=== PATIENT | female | born 1975 | race African-American/Black ===

== ENCOUNTER 2016-05-08 09:48 | Emergency (ER) | payer OTHER ==
--- NOTE | ~2016-05-08 | CR72 ---
[facility] A Service of [facility] & [facility] RADIOLOGY TEXT RESULTS PATIENT: RIC HARRY LOCATION: [facility] : 77 UNIT #: [id number] AGE: [address]: Norberto Broussard MD SEX: F ORDER DR: [id number] [facility] [address] [place], [place] [address] [id number] MR#: [id number] Acc #: [id number] NAME: RIC HARRY. : 1975 SEX: F STUDY DATE/TIME: 05/08/2016 8:21 UNIT: [facility] ROOM: STUDY DESCRIPTION: CR Chest Single View Portable Attending Physician: Norberto Broussard M.D. Ordering Physician: Norberto [id number] Estrella Broussard Primary Care Physician: [facility] MEDICAL IMAGING REPORT This report is preliminary unless electronic signature is present EXAM AP portable chest radiograph 05/08/2016 COMPARISON None. HISTORY Shortness of breath, asthma attack beginning today. FINDINGS AP portable view is obtained. The cardiovascular configuration is normal and the lungs are clear. There has been no change from December 01, 2014. CONCLUSION Negative portable chest Dictated by... Jace Power M.D. THIS IS AN ELECTRONICALLY VERIFIED REPORT Jace Power M.D. at 05/08/2016 4:45 PM Maura TD: 05/08/2016 11:35 JOB #: [id number] MEDICAL IMAGING REPORT COPY
[~2016-05-08 09:48] MED LIST: ACETAZOLAMIDE250 MG PO; ADVAIR 100-501 EACH IH; ADVAIR HFA 115-12 GM INH; ALBUTEROL 0.5ML INH; ALBUTEROL MININEB NEB; ALBUTEROL0.83 MG/ML IH; ALBUTEROL17 G1 IH; ALBUTEROL17 GM; ALBUTEROL17 GM INH; ALBUTEROL17 GM NEB; ALBUTEROL2.5 MG/0.5 IH; ALBUTEROL20 ml INH; ANTI-DIARRHEAL2 M1 PO; AZITHROMYCIN250 MG PO; BACITRACIN15 GM OINT EXT; BENTYL20 M1 PO; BENTYL20 MG PO; CIPRO PO; COMBIVENT INH14.7 GM INH; DICYCLOMINE HCL20 MG PO; DUONEB 2.5-0.5 M3 ML NEB; FLAGYL PO; KEFLEX500 M1 PO; LEVAQUIN PO; LEVSIN-SL0.125 MG SL; LEVSIN0.125 M1 PO; LOMOTIL TABLET1 TAB PO; LORTAB 5/500 TA1 TA1 PO; LORTAB 7.5-5001 TAB PO; MEDROL4 MG/DOSE- PO; MICONAZOLE PV; MILLIPRED5 MG PO; OMEPRAZOLE20 M1 PO; PHENERGAN PO; PHENERGAN SUPP25 M1 PR; PHENERGAN12.5 M1 PR; PHENERGAN25 M1 DOB; PHENERGAN25 M1 PO; PHENERGAN25 MG PO; PHENERGAN25 MG PR; PREDNISONE PO; PREDNISONE10 MG PO; PREDNISONE5 M1 PO; PREDNISONE50 MG PO; PRILOSEC PO; PRILOSEC20 M1 PO; PRILOSEC20 MG PO; PRILOSEC40 MG PO; PROTONIX PO; PROZAC PO; PULMICORT0.25 MG/2 IH; QVAR7.3 G1 IH; TESSALON200 MG PO; VICODIN 5/1 TAB 5/50 PO; VOLTAREN75 MG PO; ZITHROMAX PO; ZITHROMAX1 G/PKT PO; ZOFRAN ODT4 MG PO; ZOFRANODT PO; ZYRTEC10 M1 PO; [UNRECOGNIZED DRUG - REMARK]
[2016-05-08 10:21] LABS: BLOOD UREA NITROGEN 11 mg/dL (9-23); CALCIUM SERUM 7.7 mg/dL (8.4-10.2); CARBON DIOXIDE 24 mmol/L (22-31); CHLORIDE 108 mmol/L (100-111); GLOM FILT RATE Estimated ABOVE60 mL/min (>60); GLUCOSE FASTING 89 mg/dL (70-110); POTASSIUM 4.4 mmol/L (3.5-5.1); SODIUM 135 mmol/L (135-145)
== END 2016-05-08 11:32 | disposition home or self-care (01) ==
LOC: CED 09:48
PROVIDERS: Emergency Medicine
DX: J45.901 Unspecified asthma with (acute) exacerbation (principal); F17.200 Nicotine dependence, unspecified, uncomplicated
CPT/HCPCS: 71010; 80048; 94644; 99291

== ENCOUNTER 2016-08-05 12:44 | Emergency (ER) | payer OTHER ==
--- NOTE | ~2016-08-05 | CR72 ---
[facility] A Service of [facility] RADIOLOGY TEXT RESULTS PATIENT: RIC HARRY LOCATION: [facility] : 77 UNIT #: [id number] AGE: [address]: Raghu Brandt MD SEX: F ORDER DR: [id number] [facility] [address] [place], [place] [address] [id number] E MR#: [id number] Acc #: [id number] NAME: RIC HARRY : 1975 SEX: F STUDY DATE/TIME: UNIT: [facility] ROOM: STUDY DESCRIPTION: CR Chest Single View Portable Attending Physician: Raghu Brandt M.D. Ordering Physician: Raghu Brandt M.D. Primary Care Physician: [facility] MEDICAL IMAGING REPORT This report is preliminary unless electronic signature is present EXAM Chest portable 08/05/2016 1312 hours HISTORY 2-day history of cough, wheezing. History of asthma using inhaler. COMPARISON 05/08/2016 FINDINGS Single upright portable view demonstrates normal cardiac, mediastinal and hilar contours. The lung volumes appear normal. The lungs are clear and there are no effusions. No pneumothorax. IMPRESSION Normal portable upright chest. No appreciable change from 05/08/2016. Dictated by... Sherry Damon M.D. THIS IS AN ELECTRONICALLY VERIFIED REPORT Sherry Damon M.D. at 08/06/2016 9:26 AM SMM/agusto TD: 08/05/2016 17:10 JOB #: [id number] MEDICAL IMAGING REPORT Page 1 of 1 COPY
== END 2016-08-05 15:25 | disposition home or self-care (01) ==
LOC: CED 12:44
DX: J45.909 Unspecified asthma, uncomplicated (principal)
CPT/HCPCS: 71010; 94640; 99284